=== PATIENT | female | born 1990 | race Two or more races ===

== ENCOUNTER 2023-11-07 16:20 | Emergency (ER) | payer MEDICAID, OTHER ==
[~2023-11-07] VITALS: Ht 165.1 cm; Wt 97.1 kg
[2023-11-07] MEDS: HYDROmorphone HCL 2 MG/ML VL/or syr IM ONE (16:45)
[2023-11-07] MEDS: ONDANSETRON ODT 4 MG TAB PO ONE (16:45)
[2023-11-07 17:17] LABS: Urine Bacteria FEW /hpf (None Seen); Urine Blood Negative /uL (Negative); Urine Clarity Clear (Clear); Urine Color Colorless (Yellow); Urine Protein, UAD Negative (Negative); Urine Specific Gravity 1.006 (1.001-1.035); Urine Urobilinogen Normal (Negative); Urine WBC 7 /hpf (0 - 5); Urine pH 6.5 (5.0-9.0)
[2023-11-07 17:48] LABS: Basophils # (auto) 0 10 ^3/uL (0-0.2); Basophils % (auto) 0.4 % (0.0-2.0); Eosinophils # (auto) 0 10 ^3/uL (0-0.8); Eosinophils % (auto) 0.3 % (0.0-7.0); Hematocrit 39.8 % (36.0-46.0); Hemoglobin 13.4 g/dL (12.2-16.2); Lymphocytes # (auto) 2.1 10 ^3/uL (0.4-5.4); Lymphocytes % (auto) 27.8 % (10.0-50.0); Mean Corpuscular Hemoglobin 29.7 pg (28.0-32.0); Mean Corpuscular Hgb Conc. 33.6 g/dL (32.0-36.0); Mean Corpuscular Volume 88.4 fL (80.0-100.0); Monocytes # (auto) 0.3 10 ^3/uL (0-1.3); Monocytes % (auto) 4.3 % (0.0-12.0); Neutrophils # (auto) 5.1 10 ^3/uL (1.6-8.6); Neutrophils % (auto) 67.2 % (37.0-80.0); Red Cell Distribution Width 12.5 % (11.8-14.3); White Blood Cell 7.5 10^3/uL (4.4-10.8)
[2023-11-07 17:59] LABS: Chloride 105 mmol/L (98-107); Potassium 3.9 mmol/L (3.5-5.1); Sodium 137 mmol/L (136-145)
[2023-11-07 18:00] LABS: Anion Gap 7 (5-15); Carbon Dioxide 25 mmol/L (20-30)
[2023-11-07 18:01] LABS: Calcium 9.2 mg/dL (8.7-10.4)
[2023-11-07 18:05] LABS: BUN/Creatinine Ratio 10.1 (10.0-20.0); Blood Urea Nitrogen 9 mg/dL (9-23); Glucose 100 mg/dL (74-106)
[2023-11-07 18:06] LABS: Lipase 41 U/L (12-53)
[2023-11-07] MEDS ORDERED: IBUP-1455 PO (18:45)
[2023-11-07] MEDS ORDERED: ACET500T58 PO (18:45)
[2023-11-07] MEDS: NITROFURANTOIN 100 mg CAP PO ONE (18:51)
[2023-11-07 18:54] VITALS: BP 117/81; PULSE 75; RESP 17; TEMP 97.9; O2SAT 96
[2023-11-07] MEDS ORDERED: NITR-87 PO (19:02)
== END 2023-11-07 18:59 | disposition home or self-care (01) ==
LOC: ER 16:23
DX: N39.0 Urinary tract infection, site not specified (principal); Z88.1 Allergy status to other antibiotic agents; Z88.0 Allergy status to penicillin
CPT/HCPCS: 36415; 74176; 80048; 81001; 83605; 83690; 85025; 96372; 99285; J1170; Q0162